=== PATIENT | male | born 1965 | race Caucasian/White ===

== ENCOUNTER 2023-09-23 06:57 | Inpatient (IN) | payer BC ==
[~2023-09-23] VITALS: Ht 180.3 cm; Wt 97.5 kg
[2023-09-23] MEDS ORDERED: LORazepam 2 mg/ml vial IV ONE ×4 (08:00→12:30)
[2023-09-23] MEDS ORDERED: LORazepam 1 MG tablet PO PRN (08:05)
[2023-09-23 08:22] LABS: BASOPHILS % (AUTO) 0.2 % (0-1); EOSINOPHILS % (AUTO) 0.1 % (0-6); HEMATOCRIT 42.3 % (42.0-52.0); HEMOGLOBIN 14.7 g/dl (14.0-17.9); LYMPHOCYTES # (AUTO) 1.1 X10'3 (1.1-4.8); LYMPHOCYTES % (AUTO) 6.7 % (21-51); MEAN CORPUSCULAR HEMOGLOBIN 32.3 PG (27.0-31.0); MEAN CORPUSCULAR HGB CONC 34.8 g/dL (33.0-36.5); MEAN CORPUSCULAR VOLUME 92.8 FL (78-98); MEAN PLATELET VOLUME 7.2 FL (7.4-10.4); MONOCYTES # (AUTO) 0.9 X10'3 (0-0.9); MONOCYTES % (AUTO) 5.5 % (2-12); NEUTROPHILS # (AUTO) 13.9 X10'3 (1.8-7.7); NEUTROPHILS % (AUTO) 87.5 % (42-75); PLATELET COUNT 275 X10'3 (140-440); RED BLOOD COUNT 4.56 X10'6 (4.70-6.10); RED CELL DISTRIBUTION WIDTH 13.8 % (11.5-14.5); WHITE BLOOD COUNT 15.9 X10'3 (4.5-11.0)
[2023-09-23] MEDS: normal saline 1000ml 1,000 ML IV SCH ×3 (08:25→17:54)
[2023-09-23 08:39] LABS: INR 0.9 INR; PROTHROMBIN TIME 10.1 SECONDS (9.0-12.0)
[2023-09-23 08:40] LABS: ALANINE AMINOTRANSFERASE 88 U/L (12-78); ALBUMIN 4.2 G/DL (3.4-5.0); ALBUMIN/GLOBULIN RATIO 1.2 (1.1-1.5); ALKALINE PHOSPHATASE 84 IU/L (46-116); ANION GAP 15 (8-16); ASPARTATE AMINO TRANSFERASE 166 U/L (10-37); BILIRUBIN,TOTAL 1.6 MG/DL (0.1-1.0); BLOOD UREA NITROGEN 7 MG/DL (7-18); BUN/CREATININE RATIO 8.9 (10.0-20.0); CALCIUM 8.8 MG/DL (8.5-10.1); CHLORIDE 94 MMOL/L (99-107); CREATININE 0.79 MG/DL (0.60-1.10); GLUCOSE 118 MG/DL (70-104); POTASSIUM 3.3 MMOL/L (3.5-5.1); SODIUM 133 MMOL/L (135-145); TOTAL CARBON DIOXIDE 23.8 MMOL/L (24-32); TOTAL PROTEIN 7.7 G/DL (6.4-8.2); eCRCL 111 ML/MIN; eGFR > 90 ML/MIN
[2023-09-23] MEDS ORDERED: albuterol 2.5 MG/3 ML nebule NEB ONE (08:40)
[2023-09-23] MEDS ORDERED: ipratropium 0.5 MG/2.5ML nebule IH ONE (08:40)
[2023-09-23 09:02] LABS: BILIRUBIN,URINE SMALL (Neg); CLARITY,URINE SLIGHTLY CLOUDY (Clear); COLOR,URINE YELLOW (Yellow); GLUCOSE, URINE 100 mg/dl (Neg); KETONES,URINE >=80 mg/dl (Neg); LEUKOCYTE ESTERASE ,URINE NEGATIVE (Neg); NITRITES, URINE NEGATIVE (Neg); OCCULT BLOOD,URINE LARGE (Neg); PH,URINE 6.5 (4.8-8.0); PROTEIN,URINE 100 mg/dl (Neg)
[2023-09-23] MEDS ORDERED: POTASSIUM BICARB 20meq eff tab 20 MEQ TABLET.EFF PO SCH (09:15)
[2023-09-23 09:21] LABS: UA COLLECTION TYPE VOIDED
[2023-09-23 09:22] LABS: MUCUS STRANDS FEW /LPF (Neg); SQUAMOUS EPITHELIAL CELL,UR FEW /LPF (FEW)
[2023-09-23 09:23] LABS: RBC,URINE TNTC /HPF (0-2)
[2023-09-23 09:24] LABS: BACTERIA,URINE FEW /HPF (Neg)
[2023-09-23 09:25] LABS: COARSE GRANULAR CAST 0-3 /LPF (NEGATIVE); FINE GRANULAR CAST 0-3 /LPF (NEGATIVE)
[2023-09-23] MEDS ORDERED: morphine 4 MG/ML inj SYRINge IV ONE (09:25)
[2023-09-23] MEDS ORDERED: folic acid 1mg/0.2ml inj IV ONE (09:25)
[2023-09-23] MEDS: thiamine 100mg/ml 2ml inj. IV SCH ×3 (09:32→20:14)
[2023-09-23] MEDS ORDERED: iohexol 300mg/ml 100ml inj. ONE (09:48)
[2023-09-23 10:04] LABS: AMYLASE 44 U/L (25-115); LIPASE 30 U/L (16-77)
[2023-09-23 10:18] VITALS: PULSE 95; PULSE 98; RESP 16; RESP 18; O2SAT 99
[2023-09-23 10:26] LABS: MAGNESIUM 2.2 MG/DL (1.5-2.4)
[2023-09-23] MEDS ORDERED: normal saline 1000ml 1,000 ML IV ONE (11:00)
[2023-09-23] MEDS ORDERED: magnesium 2GM in 50ml NS 50 ML IV PRN (12:30)
[2023-09-23] MEDS ORDERED: ondansetron/PF 4mg/2ml inj IV PRN (12:30)
[2023-09-23] MEDS ORDERED: magnesium 4gm in 100ml NS 100 ML IV PRN (12:30)
[2023-09-23] MEDS ORDERED: haloperidol lactate 5mg/ml inj IM PRN (12:30)
[2023-09-23] MEDS ORDERED: magnesium hydroxide 30ml (MOM) UD suspension PO PRN (12:30)
[2023-09-23] MEDS ORDERED: docusate sod 100mg capsule PO PRN (12:30)
[2023-09-23] MEDS ORDERED: potassium Cl 40MEQ/1/2NS 520ml 520 ML IV PRN (12:30)
[2023-09-23] MEDS ORDERED: potassium Cl 20 mEq SR tablet PO PRN (12:30)
[2023-09-23] MEDS ORDERED: magnesium Cl slow-release 64mg tablet PO PRN (12:30)
[2023-09-23] MEDS ORDERED: thiamine 100mg/ml 2ml inj. IV SCH (13:00)
[2023-09-23] MEDS: LORazepam 2 mg/ml vial IV PRN (13:42)
[2023-09-23 14:30] VITALS: BP 151/90; PULSE 104; RESP 15; TEMP 99.4; O2SAT 94
[2023-09-23] MEDS: piperacillin/tazo 3.375gm/50ml 50 ML IV SCH ×2 (17:54→23:22)
[2023-09-23 18:00] VITALS: BP 140/92; PULSE 95; RESP 20; TEMP 97.8; O2SAT 100
[2023-09-23 19:30] VITALS: RESP 20
[2023-09-23] MEDS: K and/or MAG REPLACEMENT MC SCH (20:00)
[2023-09-23] MEDS: heparin, porcine 5000 units/ml vial SQ SCH (20:16)
[2023-09-23] MEDS: potassium Cl 20 mEq SR tablet PO PRN (21:57)
[2023-09-24] VITALS (7 sets, daily range): BP systolic 130–182; BP diastolic 78–112; PULSE 62–99; RESP 14–20; TEMP 97–98.3; O2SAT 96–99
[2023-09-24] MEDS: K and/or MAG REPLACEMENT MC SCH ×2 (08:00→20:00)
[2023-09-24] MEDS ORDERED: nicotine 14mg patch - 24hr TD SCH (08:00)
[2023-09-24] MEDS ORDERED: multivitamins, therapeutics tablet PO SCH (08:00)
[2023-09-24] MEDS: nicotine 21mg patch - 24 hr TD SCH (08:03)
[2023-09-24] MEDS: piperacillin/tazo 3.375gm/50ml 50 ML IV SCH ×2 (08:03→16:06)
[2023-09-24] MEDS: thiamine 100mg/ml 2ml inj. IV SCH ×3 (08:04→20:37)
[2023-09-24 08:05] LABS: BASOPHILS % (AUTO) 0.4 % (0-1); EOSINOPHILS # (AUTO) 0.1 X10'3 (0-0.9); EOSINOPHILS % (AUTO) 1.5 % (0-6); HEMATOCRIT 39.9 % (42.0-52.0); HEMOGLOBIN 13.6 g/dl (14.0-17.9); LYMPHOCYTES # (AUTO) 1.5 X10'3 (1.1-4.8); MEAN CORPUSCULAR HEMOGLOBIN 32.1 PG (27.0-31.0); MEAN CORPUSCULAR HGB CONC 34.1 g/dL (33.0-36.5); MEAN CORPUSCULAR VOLUME 94.4 FL (78-98); MEAN PLATELET VOLUME 7.4 FL (7.4-10.4); MONOCYTES # (AUTO) 0.6 X10'3 (0-0.9); MONOCYTES % (AUTO) 6.9 % (2-12); NEUTROPHILS # (AUTO) 6.3 X10'3 (1.8-7.7); NEUTROPHILS % (AUTO) 73.2 % (42-75); PLATELET COUNT 210 X10'3 (140-440); RED BLOOD COUNT 4.23 X10'6 (4.70-6.10); RED CELL DISTRIBUTION WIDTH 13.7 % (11.5-14.5); WHITE BLOOD COUNT 8.5 X10'3 (4.5-11.0)
[2023-09-24] MEDS: multivitamins, therapeutics tablet PO SCH (08:05)
[2023-09-24] MEDS: heparin, porcine 5000 units/ml vial SQ SCH ×2 (08:05→20:37)
[2023-09-24 08:28] LABS: APTT 29 SECONDS (22-32); PROTHROMBIN TIME 10.4 SECONDS (9.0-12.0)
[2023-09-24 08:56] LABS: ALANINE AMINOTRANSFERASE 74 U/L (12-78); ALBUMIN 3.2 G/DL (3.4-5.0); ALBUMIN/GLOBULIN RATIO 0.9 (1.1-1.5); ALKALINE PHOSPHATASE 71 IU/L (46-116); AMYLASE 39 U/L (25-115); ANION GAP 9 (8-16); ASPARTATE AMINO TRANSFERASE 93 U/L (10-37); BILIRUBIN,TOTAL 1.3 MG/DL (0.1-1.0); BLOOD UREA NITROGEN 8 MG/DL (7-18); BUN/CREATININE RATIO 11.4 (10.0-20.0); CALCIUM 8.7 MG/DL (8.5-10.1); CHLORIDE 101 MMOL/L (99-107); GLUCOSE 105 MG/DL (70-104); LIPASE 36 U/L (16-77); PHOSPHORUS 3.4 MG/DL (2.3-4.5); POTASSIUM 3.2 MMOL/L (3.5-5.1); SODIUM 137 MMOL/L (135-145); TOTAL CARBON DIOXIDE 27.4 MMOL/L (24-32); TOTAL PROTEIN 6.6 G/DL (6.4-8.2); eCRCL 126 ML/MIN; eGFR > 90 ML/MIN
[2023-09-24] MEDS: mag hydrox/Alum hydrox/simeth 30ml oral suspension PO PRN ×2 (11:00→20:38)
[2023-09-24] MEDS: potassium Cl 20 mEq SR tablet PO PRN ×3 (11:00→21:03)
[2023-09-24] MEDS: LORazepam 2 mg/ml vial IV PRN ×3 (11:00→20:37)
[2023-09-24] MEDS: normal saline 1000ml 1,000 ML IV SCH ×2 (11:07→20:35)
[2023-09-24] MEDS: hydrALAZINE 20mg/ml inj. IV PRN ×2 (13:20→20:50)
[2023-09-24] MEDS ORDERED: PERFLUTREN PROTEIN-A MICROSPHR (Optison) 0.22 MG/ML 3ML VIAL IV ONE (20:00)
[2023-09-25] VITALS (7 sets, daily range): BP systolic 130–158; BP diastolic 81–103; PULSE 75–105; RESP 14–18; TEMP 97.3–98.9; O2SAT 95–100
[2023-09-25] MEDS: piperacillin/tazo 3.375gm/50ml 50 ML IV SCH ×3 (00:43→15:39)
[2023-09-25] MEDS: multivitamins, therapeutics tablet PO SCH (07:28)
[2023-09-25] MEDS: nicotine 21mg patch - 24 hr TD SCH (07:29)
[2023-09-25] MEDS: thiamine 100mg/ml 2ml inj. IV SCH ×3 (07:32→20:06)
[2023-09-25] MEDS: heparin, porcine 5000 units/ml vial SQ SCH ×2 (07:32→19:05)
[2023-09-25] MEDS: K and/or MAG REPLACEMENT MC SCH ×2 (08:00→19:05)
[2023-09-25 08:13] LABS: BASOPHILS % (AUTO) 0.6 % (0-1); EOSINOPHILS # (AUTO) 0.2 X10'3 (0-0.9); EOSINOPHILS % (AUTO) 2.4 % (0-6); HEMATOCRIT 38.5 % (42.0-52.0); HEMOGLOBIN 13.2 g/dl (14.0-17.9); LYMPHOCYTES # (AUTO) 1.7 X10'3 (1.1-4.8); LYMPHOCYTES % (AUTO) 26.2 % (21-51); MEAN CORPUSCULAR HEMOGLOBIN 32.3 PG (27.0-31.0); MEAN CORPUSCULAR HGB CONC 34.4 g/dL (33.0-36.5); MEAN CORPUSCULAR VOLUME 93.9 FL (78-98); MEAN PLATELET VOLUME 7.8 FL (7.4-10.4); MONOCYTES # (AUTO) 0.6 X10'3 (0-0.9); MONOCYTES % (AUTO) 9.2 % (2-12); NEUTROPHILS % (AUTO) 61.6 % (42-75); PLATELET COUNT 206 X10'3 (140-440); RED CELL DISTRIBUTION WIDTH 13.2 % (11.5-14.5); WHITE BLOOD COUNT 6.5 X10'3 (4.5-11.0)
[2023-09-25 08:23] LABS: APTT 27 SECONDS (22-32)
[2023-09-25 08:52] LABS: ALANINE AMINOTRANSFERASE 87 U/L (12-78); ALBUMIN 3.1 G/DL (3.4-5.0); ALBUMIN/GLOBULIN RATIO 0.9 (1.1-1.5); ALKALINE PHOSPHATASE 71 IU/L (46-116); ANION GAP 8 (8-16); ASPARTATE AMINO TRANSFERASE 79 U/L (10-37); BILIRUBIN,TOTAL 1.1 MG/DL (0.1-1.0); BLOOD UREA NITROGEN 8 MG/DL (7-18); BUN/CREATININE RATIO 9.3 (10.0-20.0); CALCIUM 8.8 MG/DL (8.5-10.1); CHLORIDE 102 MMOL/L (99-107); CREATININE 0.86 MG/DL (0.60-1.10); GLUCOSE 104 MG/DL (70-104); POTASSIUM 3.4 MMOL/L (3.5-5.1); SODIUM 138 MMOL/L (135-145); TOTAL CARBON DIOXIDE 28.1 MMOL/L (24-32); TOTAL PROTEIN 6.5 G/DL (6.4-8.2); eCRCL 102 ML/MIN; eGFR > 90 ML/MIN
[2023-09-25] MEDS: mag hydrox/Alum hydrox/simeth 30ml oral suspension PO PRN (09:18)
[2023-09-25] MEDS: LORazepam 2 mg/ml vial IV PRN (09:19)
[2023-09-25] MEDS: potassium Cl 20 mEq SR tablet PO PRN ×3 (09:56→18:06)
[2023-09-25] MEDS ORDERED: LORazepam 1 MG tablet PO PRN (12:30)
[2023-09-25] MEDS ORDERED: LORazepam 2 mg/ml vial IV PRN (12:30)
[2023-09-25] MEDS: LORazepam 1 MG tablet PO PRN ×2 (14:33→19:29)
[2023-09-25] MEDS: normal saline 1000ml 1,000 ML IV SCH (15:39)
[2023-09-25] MEDS: acetaminophen 325mg tablet PO PRN (15:44)
[2023-09-25 18:33] LABS: HBSAG SCREEN Negative (Negative); HEP A AB, IGM Negative (Negative); HEP B CORE AB, IGM Negative (Negative); HEPATITIS C VIRUS ANTIBODY Non Reactive (Non Reactive)
[2023-09-26] VITALS (9 sets, daily range): BP systolic 109–153; BP diastolic 80–98; PULSE 78–103; RESP 16–22; TEMP 97.3–98.6; O2SAT 96–100
[2023-09-26] MEDS: piperacillin/tazo 3.375gm/50ml 50 ML IV SCH ×3 (02:04→16:11)
[2023-09-26] MEDS ORDERED: FLO0.4C PO (03:12)
[2023-09-26] MEDS ORDERED: OMEP20TA43 PO (03:12)
[2023-09-26] MEDS ORDERED: LISI10TA27 PO (03:12)
[2023-09-26] MEDS: K and/or MAG REPLACEMENT MC SCH ×2 (08:00→20:03)
[2023-09-26] MEDS: multivitamins, therapeutics tablet PO SCH (08:03)
[2023-09-26] MEDS: nicotine 21mg patch - 24 hr TD SCH (08:03)
[2023-09-26] MEDS: thiamine 100mg/ml 2ml inj. IV SCH ×3 (08:04→20:37)
[2023-09-26] MEDS: heparin, porcine 5000 units/ml vial SQ SCH ×2 (08:05→20:00)
[2023-09-26 09:36] LABS: APTT 27 SECONDS (22-32)
[2023-09-26] MEDS ORDERED: HYDROmorphone 1 mg/ml syringe IV PRN (13:25)
[2023-09-26 13:46] LABS: ALANINE AMINOTRANSFERASE 127 U/L (12-78); ALBUMIN 3.6 G/DL (3.4-5.0); ALKALINE PHOSPHATASE 79 IU/L (46-116); ANION GAP 10 (8-16); ASPARTATE AMINO TRANSFERASE 86 U/L (10-37); BILIRUBIN,TOTAL 0.5 MG/DL (0.1-1.0); BLOOD UREA NITROGEN 12 MG/DL (7-18); BUN/CREATININE RATIO 12.9 (10.0-20.0); CALCIUM 8.9 MG/DL (8.5-10.1); CHLORIDE 101 MMOL/L (99-107); CREATININE 0.93 MG/DL (0.60-1.10); GLUCOSE 129 MG/DL (70-104); POTASSIUM 4.1 MMOL/L (3.5-5.1); SODIUM 136 MMOL/L (135-145); TOTAL CARBON DIOXIDE 25.3 MMOL/L (24-32); TOTAL PROTEIN 7.3 G/DL (6.4-8.2); eCRCL 94 ML/MIN; eGFR 84 ML/MIN
[2023-09-26 13:55] LABS: BASOPHILS % (AUTO) 0.6 % (0-1); EOSINOPHILS # (AUTO) 0.1 X10'3 (0-0.9); EOSINOPHILS % (AUTO) 2.1 % (0-6); HEMATOCRIT 41.7 % (42.0-52.0); HEMOGLOBIN 14.2 g/dl (14.0-17.9); LYMPHOCYTES # (AUTO) 1.3 X10'3 (1.1-4.8); LYMPHOCYTES % (AUTO) 20.3 % (21-51); MEAN CORPUSCULAR HEMOGLOBIN 32.2 PG (27.0-31.0); MEAN CORPUSCULAR VOLUME 94.6 FL (78-98); MEAN PLATELET VOLUME 8.2 FL (7.4-10.4); MONOCYTES # (AUTO) 0.5 X10'3 (0-0.9); MONOCYTES % (AUTO) 8.3 % (2-12); NEUTROPHILS # (AUTO) 4.5 X10'3 (1.8-7.7); NEUTROPHILS % (AUTO) 68.7 % (42-75); PLATELET COUNT 260 X10'3 (140-440); RED BLOOD COUNT 4.41 X10'6 (4.70-6.10); RED CELL DISTRIBUTION WIDTH 13.3 % (11.5-14.5); WHITE BLOOD COUNT 6.5 X10'3 (4.5-11.0)
[2023-09-26] MEDS: mag hydrox/Alum hydrox/simeth 30ml oral suspension PO PRN (16:09)
[2023-09-26] MEDS: acetaminophen 325mg tablet PO PRN (17:26)
[2023-09-26] MEDS: normal saline 1000ml 1,000 ML IV SCH (17:31)
[2023-09-26] MEDS: hydrALAZINE 20mg/ml inj. IV PRN (20:37)
[2023-09-27] VITALS (8 sets, daily range): BP systolic 112–137; BP diastolic 66–86; PULSE 76–94; RESP 14–19; TEMP 97.4–98.9; O2SAT 98–100
[2023-09-27] MEDS: piperacillin/tazo 3.375gm/50ml 50 ML IV SCH ×3 (00:07→17:06)
[2023-09-27] MEDS ORDERED: chlordiazePOXIDE 25mg capsule PO PRN (07:45)
[2023-09-27] MEDS ORDERED: lisinopril 10 MG tablet PO ONE (07:45)
[2023-09-27] MEDS: nicotine 21mg patch - 24 hr TD SCH (08:01)
[2023-09-27] MEDS: multivitamins, therapeutics tablet PO SCH (08:02)
[2023-09-27] MEDS: heparin, porcine 5000 units/ml vial SQ SCH ×2 (08:03→20:01)
[2023-09-27] MEDS: thiamine 100mg/ml 2ml inj. IV SCH ×3 (08:05→20:01)
[2023-09-27] MEDS: K and/or MAG REPLACEMENT MC SCH ×2 (09:00→20:00)
[2023-09-27] MEDS: LORazepam 1 MG tablet PO PRN ×2 (11:46→23:37)
[2023-09-27] MEDS ORDERED: LORazepam 2 mg/ml vial IV PRN (12:30)
[2023-09-27 13:40] LABS: BASOPHILS % (AUTO) 0.5 % (0-1); EOSINOPHILS # (AUTO) 0.1 X10'3 (0-0.9); EOSINOPHILS % (AUTO) 1.5 % (0-6); HEMATOCRIT 41.7 % (42.0-52.0); HEMOGLOBIN 14.2 g/dl (14.0-17.9); LYMPHOCYTES # (AUTO) 1.3 X10'3 (1.1-4.8); LYMPHOCYTES % (AUTO) 20.3 % (21-51); MEAN CORPUSCULAR HEMOGLOBIN 32.4 PG (27.0-31.0); MEAN CORPUSCULAR HGB CONC 34.1 g/dL (33.0-36.5); MEAN CORPUSCULAR VOLUME 94.9 FL (78-98); MEAN PLATELET VOLUME 7.7 FL (7.4-10.4); MONOCYTES # (AUTO) 0.6 X10'3 (0-0.9); MONOCYTES % (AUTO) 9.2 % (2-12); NEUTROPHILS # (AUTO) 4.3 X10'3 (1.8-7.7); NEUTROPHILS % (AUTO) 68.5 % (42-75); PLATELET COUNT 289 X10'3 (140-440); RED CELL DISTRIBUTION WIDTH 13.7 % (11.5-14.5); WHITE BLOOD COUNT 6.2 X10'3 (4.5-11.0)
[2023-09-27 14:05] LABS: ALANINE AMINOTRANSFERASE 168 U/L (12-78); ALBUMIN 3.8 G/DL (3.4-5.0); ALBUMIN/GLOBULIN RATIO 1.1 (1.1-1.5); ALKALINE PHOSPHATASE 68 IU/L (46-116); ANION GAP 8 (8-16); ASPARTATE AMINO TRANSFERASE 102 U/L (10-37); BILIRUBIN,TOTAL 0.5 MG/DL (0.1-1.0); BLOOD UREA NITROGEN 12 MG/DL (7-18); BUN/CREATININE RATIO 13.3 (10.0-20.0); CALCIUM 9.2 MG/DL (8.5-10.1); CHLORIDE 101 MMOL/L (99-107); GLUCOSE 109 MG/DL (70-104); POTASSIUM 3.5 MMOL/L (3.5-5.1); SODIUM 136 MMOL/L (135-145); TOTAL CARBON DIOXIDE 27.5 MMOL/L (24-32); TOTAL PROTEIN 7.4 G/DL (6.4-8.2); eCRCL 98 ML/MIN; eGFR 87 ML/MIN
[2023-09-27] MEDS: normal saline 1000ml 1,000 ML IV SCH (14:39)
[2023-09-27] MEDS ORDERED: acetaminophen 325mg tablet PO PRN (15:00)
[2023-09-27] MEDS: mag hydrox/Alum hydrox/simeth 30ml oral suspension PO PRN ×2 (15:53→23:33)
[2023-09-27] MEDS ORDERED: tamsulosin 0.4mg capsule PO SCH (21:00)
[2023-09-28] MEDS: piperacillin/tazo 3.375gm/50ml 50 ML IV SCH ×2 (00:07→10:36)
[2023-09-28 00:36] VITALS: RESP 16
[2023-09-28 06:00] VITALS: BP 100/49; PULSE 57; RESP 14; TEMP 98.3; O2SAT 99
[2023-09-28 06:30] VITALS: O2SAT 99
[2023-09-28 07:10] LABS: BASOPHILS # (AUTO) 0.1 X10'3 (0-0.2); BASOPHILS % (AUTO) 0.8 % (0-1); EOSINOPHILS # (AUTO) 0.2 X10'3 (0-0.9); EOSINOPHILS % (AUTO) 3.3 % (0-6); HEMATOCRIT 38.2 % (42.0-52.0); HEMOGLOBIN 13.1 g/dl (14.0-17.9); LYMPHOCYTES # (AUTO) 2.4 X10'3 (1.1-4.8); LYMPHOCYTES % (AUTO) 33.9 % (21-51); MEAN CORPUSCULAR HEMOGLOBIN 32.9 PG (27.0-31.0); MEAN CORPUSCULAR HGB CONC 34.4 g/dL (33.0-36.5); MEAN CORPUSCULAR VOLUME 95.6 FL (78-98); MEAN PLATELET VOLUME 7.7 FL (7.4-10.4); MONOCYTES # (AUTO) 0.8 X10'3 (0-0.9); MONOCYTES % (AUTO) 11.8 % (2-12); NEUTROPHILS # (AUTO) 3.6 X10'3 (1.8-7.7); NEUTROPHILS % (AUTO) 50.2 % (42-75); PLATELET COUNT 248 X10'3 (140-440); RED BLOOD COUNT 3.99 X10'6 (4.70-6.10); RED CELL DISTRIBUTION WIDTH 13.8 % (11.5-14.5); WHITE BLOOD COUNT 7.1 X10'3 (4.5-11.0)
[2023-09-28 07:24] LABS: ALANINE AMINOTRANSFERASE 146 U/L (12-78); ALBUMIN 3.3 G/DL (3.4-5.0); ALKALINE PHOSPHATASE 64 IU/L (46-116); ANION GAP 11 (8-16); ASPARTATE AMINO TRANSFERASE 78 U/L (10-37); BILIRUBIN,TOTAL 0.4 MG/DL (0.1-1.0); BLOOD UREA NITROGEN 14 MG/DL (7-18); BUN/CREATININE RATIO 15.1 (10.0-20.0); CALCIUM 8.9 MG/DL (8.5-10.1); CHLORIDE 103 MMOL/L (99-107); CREATININE 0.93 MG/DL (0.60-1.10); GLUCOSE 106 MG/DL (70-104); POTASSIUM 3.9 MMOL/L (3.5-5.1); SODIUM 137 MMOL/L (135-145); TOTAL CARBON DIOXIDE 22.7 MMOL/L (24-32); TOTAL PROTEIN 6.6 G/DL (6.4-8.2); eCRCL 94 ML/MIN; eGFR 84 ML/MIN
[2023-09-28] MEDS: K and/or MAG REPLACEMENT MC SCH (07:27)
[2023-09-28] MEDS ORDERED: pantoprazole 40mg Tablet.DR PO SCH (07:30)
[2023-09-28] MEDS ORDERED: thiamine 100mg tablet PO SCH (08:00)
[2023-09-28] MEDS ORDERED: folic acid 1mg tablet PO SCH ×2 (08:00)
[2023-09-28 10:00] VITALS: BP 111/62; PULSE 83; RESP 18; TEMP 97.9; O2SAT 99
[2023-09-28 10:30] VITALS: RESP 18; O2SAT 99
[2023-09-28] MEDS: multivitamins, therapeutics tablet PO SCH (10:36)
[2023-09-28] MEDS: nicotine 21mg patch - 24 hr TD SCH (10:37)
[2023-09-28] MEDS: heparin, porcine 5000 units/ml vial SQ SCH (10:38)
[2023-09-28] MEDS ORDERED: AMOX-117 PO (12:00)
[2023-09-28] MEDS ORDERED: LACT1CAP60 PO (12:00)
[2023-09-28] MEDS ORDERED: THIA100T70 PO (12:00)
[2023-09-28] MEDS ORDERED: MULT-1085 PO (12:00)
[2023-09-28] MEDS ORDERED: NALT50TA PO (12:00)
[2023-09-28] MEDS ORDERED: FOLI0.4T6 PO (12:00)
[2023-09-28] MEDS ORDERED: CITA20TA28 PO (12:00)
== END 2023-09-28 13:25 | disposition home or self-care (01) | DRG 871 ==
LOC: ER 06:57 → ED HOLD 12:38 → EDBEDREQ 13:37 → PCU 3S 14:27
PROVIDERS: ADMIT Family Medicine; ATTEND Family Medicine
PROC: BW211ZZ Computerized Tomography (CT Scan) of Abdomen and Pelvis using Low Osmolar Contrast (ICD-10-PCS; principal; 2023-09-23)
DX: A41.9 Sepsis, unspecified organism (principal); G93.41 Metabolic encephalopathy; E87.1 Hypo-osmolality and hyponatremia; I24.89 Other forms of acute ischemic heart disease; F10.239 Alcohol dependence with withdrawal, unspecified; F32.A Depression, unspecified; F17.210 Nicotine dependence, cigarettes, uncomplicated; I10 Essential (primary) hypertension; E87.6 Hypokalemia; E86.0 Dehydration; K52.9 Noninfective gastroenteritis and colitis, unspecified; R31.29 Other microscopic hematuria; K21.9 Gastro-esophageal reflux disease without esophagitis; K76.0 Fatty (change of) liver, not elsewhere classified; K83.8 Other specified diseases of biliary tract; Z80.1 Family history of malignant neoplasm of trachea, bronchus and lung; Z71.6 Tobacco abuse counseling
CPT/HCPCS: 36415; 70450; 71045; 72125; 74177; 76700; 80053; 80074; 80346; 81001; 82150; 83690; 83735; 84100; 84484; 85025; 85610; 85730; 87088; 93306; 94760; 97116; 97161; 97530; 99285; A4615; A6212; A6260; A6449; G0378; J0360; J1644; J2060; J2270; J2543; J3411; J3490; J7030; J7040; Q9967